=== PATIENT | male | born 2000 | race Caucasian/White ===

== ENCOUNTER 2019-05-13 16:40 | Emergency (ER) | payer OTHER ==
[~2019-05-13] VITALS: Ht 182.9 cm; Wt 68.9 kg
--- NOTE | 2019-05-13 17:48 | PHYS DOC ---
Past History Past Medical History: Depression, Other Additional Past Medical Histor: Insomnia, PTSD (RHEA GRANADOS DO) Past Surgical History: Other Additional Past Surgical Histo: Left heel repair (RHEA GRANADOS DO) Additional Smoking Information: Vaping Alcohol Use: Sober Additional Alcohol Information: In treatment for ETOH abuse Drug Use: None (RHEA GRANADOS DO) Adult General Chief Complaint Chief Complaint: PSYCH EVALUATION HPI HPI 18-year-old male presents with suicidal thoughts. The patient was feeling very depressed last week. He had some suicidal thoughts, but did not generate a plan. He talked to at [employer] who felt that he was low risk at that time. The patient went to a physical examination today and shared the thoughts that he had last week with the provider. The provider recommended that the patient have a formal psychiatric evaluation in the emergency room. The patient was sent to this hospital. He tells me he is no longer having suicidal thoughts. He is feeling much better than last week. It is wants to get cleared so he can go back to his job. He has no other complaints. (RHEA GRANADOS DO) Review of Systems Review of Systems Constitutional: Denies fever or chills [] Eyes: Denies change in visual acuity, redness, or eye pain [] HENT: Denies nasal congestion or sore throat [] Respiratory: Denies cough or shortness of breath [] Cardiovascular: No additional information not addressed in HPI [] GI: Denies abdominal pain, nausea, vomiting, bloody stools or diarrhea [] : Denies dysuria or hematuria [] Musculoskeletal: Denies back pain or joint pain [] Integument: Denies rash or skin lesions [] Neurologic: Denies headache, focal weakness or sensory changes [] Endocrine: Denies polyuria or polydipsia [] All other systems were reviewed and found to be within normal limits, except as documented in this note. (RHEA GRANADOS DO) Physical Exam Physical Exam Constitutional: Well developed, well nourished, no acute distress, non-toxic appearance. [] HENT: Normocephalic, atraumatic, bilateral external ears normal, oropharynx moist, no oral exudates, nose normal. [] Eyes: PERRLA, EOMI, conjunctiva normal, no discharge. [] Neck: Normal range of motion, no tenderness, supple, no stridor. [] Cardiovascular:Heart rate regular rhythm, no murmur [] Lungs & Thorax: Bilateral breath sounds clear to auscultation [] Abdomen: Bowel sounds normal, soft, no tenderness, no masses, no pulsatile masses. [] Skin: Warm, dry, no erythema, no rash. [] Back: No tenderness, no CVA tenderness. [] Extremities: No tenderness, no cyanosis, no clubbing, ROM intact, no edema. [] Neurologic: Alert and oriented X 3, normal motor function, normal sensory function, no focal deficits noted. [] Psychologic: Affect normal, judgement normal, mood depressed[] (RHEA GRANADOS DO) Current Patient Data Vital Signs Vital Signs Date Time Temp Pulse Resp B/P (MAP) Pulse Ox O2 Delivery O2 Flow Rate FiO2 05/13/19 17:06 98.3 91 16 99 Room Air (RHEA GRANADOS DO) EKG EKG [] (RHEA GRANADOS DO) Radiology/Procedures Radiology/Procedures [] (RHEA GRANADOS DO) Course & Med Decision Making Course & Med Decision Making Pertinent Labs and Imaging studies reviewed. (See chart for details) The patient denies any suicidal ideation to me at this time. I have informed him that we will go through her process and have him evaluated by psychiatrist. The patient is in agreement with lab work, urine, and evaluation. His results are pending. I'm signing the patient out to Dr. Blanchard at 1800. He will determine the patient's final disposition. [] (RHEA GRANADOS DO) Course & Med Decision Making Signout from Dr. Granados at 6:20 PM, Dr. Last Motley from [facility] talked to this patient in detail I spoke with Dr. Motley and the patient myself both feel comfortable with plan to discharge home patient can contract for safety (MAYLIN LAMB MD) Dragon Disclaimer Dragon Disclaimer This electronic medical record was generated, in whole or in part, using a voice recognition dictation system. (RHEA GRANADOS DO) Departure Departure: Impression: Primary Impression: Suicidal thoughts Disposition: HOME, SELF-CARE Condition: STABLE Referrals: PCP,NO (PCP) RHEA GRANADOS DO May 13, 2019 17:48 MAYLIN LAMB MD May 13, 2019 20:54
[2019-05-13 17:50] LABS: BASO # 0.1 x10^3/uL (0.0-0.2); BASO % 1 % (0-3); EOS % 0 % (0-3); HEMATOCRIT 49.8 % (39.0-53.0); HEMOGLOBIN 16.8 g/dL (13.0-17.5); LYMPH # 1.2 x10^3/uL (1.0-4.8); LYMPH % 14 % (24-48); MEAN CORPUSCULAR HEMOGLOBIN 30 pg (25-35); MEAN CORPUSCULAR HGB CONC 34 g/dL (31-37); MEAN CORPUSCULAR VOLUME 90 fL (79-100); MONO # 0.5 x10^3/uL (0.0-1.1); MONO % 6 % (0-9); NEUT # 6.8 x10^3uL (1.8-7.7); NEUT % 79 % (31-73); PLATELET COUNT 195 x10^3/uL (140-400); RED BLOOD COUNT 5.51 x10^6/uL (4.30-5.70); RED CELL DISTRIBUTION WIDTH 13.4 % (11.5-14.5); WHITE BLOOD COUNT 8.6 x10^3/uL (4.0-11.0)
[2019-05-13 18:08] LABS: ALBUMIN 4.6 g/dL (3.4-5.0); ALBUMIN/GLOBULIN RATIO 1.2 (1.0-1.7); CALCIUM 9.7 mg/dL (8.5-10.1); CREATININE 0.9 mg/dL (0.7-1.3); GFR 108.7; POTASSIUM 3.8 mmol/L (3.5-5.1); TOTAL BILIRUBIN 1.5 mg/dL (0.2-1.0); TOTAL PROTEIN 8.3 g/dL (6.4-8.2)
[2019-05-13 18:27] LABS: BARBITURATES NEG (NEG); BENZODIAZEPINES NEG (NEG); CANNABINOIDS NEG (NEG); COCAINE NEG (NEG); METHADONE NEG (NEG); OPIATES NEG (NEG); PHENCYCLIDINE NEG (NEG)
[2019-05-13 18:31] LABS: AMPHETAMINE/METHAMPHETAMINE NEG (NEG)
[2019-05-13 18:34] LABS: BILIRUBIN,URINE NEG (NEG); CLARITY,URINE CLEAR; COLOR,URINE YELLOW; GLUCOSE,URINE NEG (NEG); NITRITE,URINE NEG (NEG); UROBILINOGEN,URINE 0.2 mg/dL (0.2 mg/dL)
[2019-05-13 18:35] LABS: BACTERIA,URINE 0 /HPF (0-FEW); RBC,URINE 0 /HPF (0-2); SQUAMOUS EPITHELIAL CELL,UR OCC /LPF; WBC,URINE 0 /HPF (0-4)
[2019-05-13 21:00] VITALS: BP 124/76
== END 2019-05-13 21:05 | disposition home or self-care (01) ==
LOC: ER 16:40
DX: R45.851 Suicidal ideations (principal); F32.9 Major depressive disorder, single episode, unspecified; G47.00 Insomnia, unspecified; F43.10 Post-traumatic stress disorder, unspecified; F17.200 Nicotine dependence, unspecified, uncomplicated
CPT/HCPCS: 36415; 80053; 80307; 81001; 85025; 99284